=== PATIENT | male | born 1980 | race African-American/Black ===

== ENCOUNTER 2018-01-14 23:42 | Emergency (ER) | payer SELFPAY ==
[~2018-01-14] VITALS: Ht 172.7 cm; Wt 68.0 kg
[2018-01-14 23:52] VITALS: BP 136/84
== END 2018-01-15 02:00 | disposition left against medical advice (07) ==
LOC: ER 01-15 01:54
DX: R44.1 Visual hallucinations (principal); Z53.21 Procedure and treatment not carried out due to patient leaving prior to being seen by health care provider

== ENCOUNTER 2018-01-15 06:49 | Emergency (ER) | payer MEDICARE, MEDICAID ==
[~2018-01-15] VITALS: Ht 177.8 cm; Wt 54.5 kg
[2018-01-16] MEDS ORDERED: ACETAMINOPHEN 325MG TABLET PO ONE (08:15)
[2018-01-16 17:24] VITALS: BP 120/84
== END 2018-01-16 17:31 | disposition home or self-care (01) ==
LOC: ER 07:51
DX: F20.9 Schizophrenia, unspecified (principal); Z59.0 Homelessness; R44.0 Auditory hallucinations; R51 Headache; Z75.1 Person awaiting admission to adequate facility elsewhere
CPT/HCPCS: 99284

== ENCOUNTER 2019-10-19 18:01 | Emergency (ER) | payer MEDICARE, MEDICAID ==
[~2019-10-19] VITALS: Ht 175.3 cm; Wt 72.0 kg
[2019-10-19] MEDS ORDERED: CLINDAMYCIN 600 MG in DEXTROSE 5% WATER 50 ML IV ONE (18:30)
[2019-10-19 19:00] LABS: BASOPHILS % 0.2 % (0.0-2.0); EOSINOPHILS % 0.4 % (0.0-5.0); HEMOGLOBIN. 14.4 g/dL (14.0-18.0); LYMPHOCYTES % 7.1 % (20.0-50.0); MEAN CORPUSCULAR HEMOGLOBIN 28.4 pg (28.0-32.0); MEAN CORPUSCULAR VOLUME 86.7 fL (80.0-94.0); MEAN PLATELET VOLUME 8.4 fl (7.4-10.4); MONOCYTES % 14.2 % (2.0-8.0); NEUTROPHILS % 78.1 % (40.0-76.0); PLATELET 279 x1000/uL (130-400); RED BLOOD CELL COUNT 5.07 mill/uL (4.7-6.1); RED CELL DISTRIBUTION WIDTH 13.3 % (11.6-14.6)
[2019-10-19 19:03] LABS: CHLORIDE 100 mEq/L (98-107)
[2019-10-19] MEDS ORDERED: TETANUS, DIPHTHERIA, PERTUSSIS VAC/PF 0.5ML (>7YR OLD) IM ONE (23:30)
[2019-10-19] MEDS ORDERED: MORPHINE SULFATE 4 MG/ML CPJ (NOT FOR IM USE) IV ONE (23:30)
[2019-10-20 01:55] VITALS: BP 149/91
== END 2019-10-20 02:12 | disposition short-term general hospital (02) ==
LOC: ER 18:01
DX: S02.40CA Maxillary fracture, right side, initial encounter for closed fracture (principal); W22.8XXA Striking against or struck by other objects, initial encounter; Y93.89 Activity, other specified; Y92.89 Other specified places as the place of occurrence of the external cause; Y99.8 Other external cause status; F31.9 Bipolar disorder, unspecified; F20.9 Schizophrenia, unspecified
CPT/HCPCS: 36415; 70487; 80048; 85025; 90471; 90715; 96365; 96366; 96375; 99285; J2270; J3490; J7060